=== PATIENT | male | born 1950 | race Caucasian/White ===

== ENCOUNTER 2019-01-11 12:13 | Inpatient (IN) | payer OTHER, MEDICAID ==
[2019-01-11] VITALS (7 sets, daily range): BP systolic 73–114; BP diastolic 24–59
[~2019-01-11] VITALS: Ht 190.5 cm; Wt 76.7 kg
[2019-01-11 12:53] LABS: PLATELET COUNT 373 x10^3mcL (130-400)
[2019-01-11 12:56] LABS: RED CELL DISTRIBUTION WIDTH 16.9 % (11.5-14.5)
[2019-01-11 13:08] LABS: BILIRUBIN TOTAL 0.5 mg/dL (0.20-1.00); CALCIUM 10.6 mg/dL (8.5-10.1); CARBON DIOXIDE 19.7 mmol/L (21-32); POTASSIUM SERUM 5.4 mmol/L (3.5-5.1)
[2019-01-11 13:14] LABS: ALBUMIN 2.2 g/dL (3.4-5.0); CREATININE SERUM 5.9 mg/dL (0.7-1.3); TOTAL PROTEIN, SERUM 6.1 g/dL (6.4-8.2)
[2019-01-11 13:27] LABS: UA SPECIFIC GRAVITY 1.025 (1.005-1.035); microscopic required? YES; urine erythrocyte 1+ (NEGATIVE)
[2019-01-11 14:33] LABS: BAND NEUTROPHIL 69 % (0-10); MONOCYTE 14 % (0-7); SEGMENTED NEUTROPHILS 11 % (37-75)
[2019-01-11 14:34] LABS: BASOPHIL 0 % (0-2)
[2019-01-11 14:35] LABS: PLATELET MORPHOLOGY PLATELETS NORMAL; rbc morphology (normal/abnorm) ABNORMAL (NORMAL)
[2019-01-11] MEDS ORDERED: COLACE100 MG PO (15:52)
[2019-01-11] MEDS ORDERED: LOVASTATIN20 MG PO (15:53)
[2019-01-11] MEDS ORDERED: MORPHINE SULFAT30 M6 PO (15:54)
[2019-01-11] MEDS ORDERED: NOR10T PO (15:54)
[2019-01-11] MEDS ORDERED: PEPCID20 MG PO (15:55)
[2019-01-11] MEDS ORDERED: TYLENOL WITH CO1 TA2 PO (15:55)
[2019-01-11] MEDS ORDERED: ZOF4 PO (15:56)
[2019-01-11 16:19] LABS: MAGNESIUM 3.8 mg/dL (1.8-2.4)
[2019-01-11 16:22] LABS: AMPHETAMINE QUAL UR NONE DETECTED (See below)
[2019-01-11 16:25] LABS: CHOLESTEROL/HDL RATIO 5.3
[2019-01-11 17:15] LABS: PHOSPHOROUS 9.6 mg/dL (2.5-4.9)
[2019-01-12] VITALS (8 sets, daily range): BP systolic 79–203; BP diastolic 38–95; Ht 190.5 cm; Wt 76.7 kg
[2019-01-12 05:00] LABS: BASOPHIL % 0.1 % (0-2); PLATELET COUNT 170 x10^3mcL (130-400)
[2019-01-12 05:10] LABS: RED CELL DISTRIBUTION WIDTH 16.8 % (11.5-14.5)
[2019-01-12 05:18] LABS: BILIRUBIN TOTAL 0.78 mg/dL (0.20-1.00); CALCIUM 8.2 mg/dL (8.5-10.1); CARBON DIOXIDE 15.8 mmol/L (21-32); MAGNESIUM 3.5 mg/dL (1.8-2.4)
[2019-01-12 05:21] LABS: ALBUMIN 1.4 g/dL (3.4-5.0); TOTAL PROTEIN, SERUM 4.7 g/dL (6.4-8.2)
[2019-01-12 05:24] LABS: POTASSIUM SERUM 7.9 mmol/L (3.5-5.1)
[2019-01-12 05:25] LABS: PHOSPHOROUS 14.6 mg/dL (2.5-4.9)
== END 2019-01-12 13:05 | disposition expired | DRG 871 ==
LOC: ED 12:13 → IC 15:19
PROVIDERS: Emergency Medicine; ADMIT General Practice
PROC: 04HK33Z Insertion of Infusion Device into Right Femoral Artery, Percutaneous Approach (ICD-10-PCS; principal; 2019-01-11)
PROC: 05HM33Z Insertion of Infusion Device into Right Internal Jugular Vein, Percutaneous Approach (ICD-10-PCS; 2019-01-11)
PROC: B543ZZA Ultrasonography of Right Jugular Veins, Guidance (ICD-10-PCS; 2019-01-11)
PROC: 5A1935Z Respiratory Ventilation, Less than 24 Consecutive Hours (ICD-10-PCS; 2019-01-11)
PROC: 0BH17EZ Insertion of Endotracheal Airway into Trachea, Via Natural or Artificial Opening (ICD-10-PCS; 2019-01-11)
DX: A41.4 Sepsis due to anaerobes (principal); R65.21 Severe sepsis with septic shock; J96.21 Acute and chronic respiratory failure with hypoxia; N17.0 Acute kidney failure with tubular necrosis; E43 Unspecified severe protein-calorie malnutrition; G92 Toxic encephalopathy; K72.00 Acute and subacute hepatic failure without coma; C78.01 Secondary malignant neoplasm of right lung; C79.51 Secondary malignant neoplasm of bone; E87.4 Mixed disorder of acid-base balance; N39.0 Urinary tract infection, site not specified; E87.1 Hypo-osmolality and hyponatremia; I10 Essential (primary) hypertension; E86.0 Dehydration; E83.52 Hypercalcemia; E83.41 Hypermagnesemia; E87.5 Hyperkalemia; E83.39 Other disorders of phosphorus metabolism; Z90.5 Acquired absence of kidney; Z68.24 Body mass index [BMI] 24.0-24.9, adult; Z85.520 Personal history of malignant carcinoid tumor of kidney
CPT/HCPCS: 36556; 36600; 82962; 83880; J0610; J1642; J1644; J1720; J1815; J1956; J2370; J2543; J3490; J7030; J7040; J7050; J7620; Q0092